=== PATIENT | female | born 1980 | race American Indian/Alaskan Native ===

== ENCOUNTER 2017-04-05 15:00 | Emergency (ER) | payer BC ==
[2017-04-05 15:08] VITALS: BP 184/126
[2017-04-05] MEDS ORDERED: CATAPRES PO ONE (16:09)
[2017-04-05] MEDS ORDERED: CATAPRES ONE (16:35)
[2017-04-05 16:38] LABS: Basophils % (Auto) 0.6 % (0.0-1.8); Eosinophils % (Auto) 2.5 % (0.0-4.3); Hematocrit 43.5 % (30.3-42.9); Hemoglobin 14.3 gm/dl (10.1-14.3); Mean Corpuscular HGB Conc 33 % (30-34); Mean Corpuscular Hemoglobin 30 pg (28-32); Mean Corpuscular Volume 92 fl (79-97); Platelet Count 194 K/mm3 (140-440); Red Blood Count 4.72 M/mm3 (3.65-5.03); Red Cell Distribution Width 13.2 % (13.2-15.2)
--- NOTE | 2017-04-05 16:52 | Emergency Department Report ---
Entered by DENISE TATE, acting as scribe for HECTOR SCHULTE PA. Chief Complaint: Dizziness Stated Complaint: DIZZINESS Time Seen by Provider: 04/05/17 15:55 - HPI History of Present Illness: 36 y/o female with PMHx of HTN, presents to the ED c/o dizziness beginning 4 days ago. Associated symptoms of seeing specks in eyesight (blurry vision), "pounding" headache, SOB, chest tightness, and non-productive cough. 9/10 severity. Patient is non-compliant with HTN medication. No other complaints. - ROS Review of Systems: RESP: positive for non-productive cough and SOB, CARDIAC: positive for chest tightness NEURO: positive for "specks in eyesight" described as blurred vision, "pounding " headache, dizziness described as lightheadedness All other systems reviewed and negative. - Exam Vital Signs: Vital Signs 04/05/17 15:05 Temperature 98.3 F Pulse Rate 93 H Respiratory 20 Rate Blood Pressure 184/126 O2 Sat by Pulse 100 Oximetry Physical Exam: Constitutional: Non toxic appearing, NAD. Cardiovascular: Normal rate and rhythm with normal S1/S2 sounds. Respiratory: No respiratory distress. Lung sounds clear to auscultation bilaterally. No wheezing. Patient is actively coughing during the exam. MSE screening note: Focused history and physical exam performed. Due to findings the following was ordered: ED Medical Decision Making - Lab Data Result diagrams: 04/05/17 16:25 - Medical Decision Making alert and oriented x3. Labs ordered, patient to be seen by ED physician No acute distress, patient is stable. ED Disposition for MSE Condition: Stable This documentation as recorded by the scribe,DENISE TATE,accurately reflects the service I personally performed and the decisions made by ERIS steele OYINLOLA A, PA.
[2017-04-05 16:59] LABS: Alanine Aminotransferase 9 units/L (7-56); Albumin 4.5 g/dL (3.9-5); Albumin/Globulin Ratio 1.4 %; Alkaline Phosphatase 76 units/L (35-129); Anion Gap 16 mmol/L; BUN/Creatinine Ratio 8.75; Blood Urea Nitrogen 7 mg/dL (7-17); Calcium 8.6 mg/dL (8.4-10.2); Carbon Dioxide 23 mmol/L (22-30); Chloride 98.9 mmol/L (98-107); Glucose 82 mg/dL (65-100); Potassium 3.2 mmol/L (3.6-5.0); Sodium 135 mmol/L (137-145); Total Protein 7.8 g/dL (6.3-8.2)
[2017-04-05 17:44] LABS: Bilirubin,Urine NEG (Negative); Blood,Urine NEG (Negative); Ketones,Urine TR mg/dL (Negative); Leukocyte Esterase,Urine NEG (Negative); Mucus,Urine 1+ /HPF; Nitrite,Urine NEG (Negative); Protein,Urine <15 mg/dL mg/dL (Negative)
--- NOTE | 2017-04-06 09:15 | XRay Report ---
ROUTINE CHEST, TWO VIEWS: History: Cough. PA and lateral views demonstrate the heart and mediastinal contour to be of normal size and shape. The lungs are clear and fully expanded and the soft tissues and bony structures are normal. IMPRESSION: Normal study.
== END 2017-04-06 12:00 | disposition left against medical advice (07) ==
LOC: ED 15:00
DX: R42 Dizziness and giddiness (principal); Z53.21 Procedure and treatment not carried out due to patient leaving prior to being seen by health care provider
CPT/HCPCS: 36415; 71020; 80053; 81001; 84703; 85025; 93005; 93010

== ENCOUNTER 2019-06-25 09:07 | Emergency (ER) | payer BC, OTHER ==
--- NOTE | 2019-06-25 10:33 | Emergency Department Report ---
ED General Adult HPI - General Chief complaint: High BP Stated complaint: FEVER/SORE THROAT/COUGH Time Seen by Provider: 06/25/19 10:32 Source: patient Mode of arrival: Ambulatory Limitations: No Limitations - History of Present Illness Severity scale (0 -10): 9 - Related Data Previous Rx's Medication Instructions Recorded Last Taken Type amLODIPine [Norvasc] 10 mg PO DAILY 30 Days #30 tab 06/25/19 Unknown Rx Allergies Allergy/AdvReac Type Severity Reaction Status Date / Time acetaminophen Allergy Unknown Verified 04/05/17 15:05 [From Lorcet (hydrocodone)] hydrocodone bitartrate Allergy Unknown Verified 04/05/17 15:05 [From Lorcet (hydrocodone)] ED Review of Systems ROS: Stated complaint: FEVER/SORE THROAT/COUGH Other details as noted in HPI ED Past Medical Hx - Past Medical History Hx Hypertension: Yes - Surgical History Past Surgical History?: No - Social History Smoking Status: Never Smoker Substance Use Type: Alcohol - Medications Home Medications: Home Medications Medication Instructions Recorded Confirmed Last Taken Type amLODIPine [Norvasc] 10 mg PO DAILY 30 Days #30 tab 06/25/19 Unknown Rx ED Physical Exam - General Limitations: No Limitations ED Course Vital Signs 06/25/19 06/25/19 06/25/19 09:13 09:28 09:31 Temperature 98.1 F Pulse Rate 109 H Respiratory 16 Rate Blood Pressure Blood Pressure 187/125 [Left] O2 Sat by Pulse 100 100 100 Oximetry 06/25/19 06/25/19 06/25/19 09:46 09:51 10:00 Temperature 98.2 F Pulse Rate 90 96 H 80 Respiratory 20 20 17 Rate Blood Pressure 179/115 159/107 Blood Pressure 179/115 [Left] O2 Sat by Pulse 100 100 97 Oximetry 06/25/19 06/25/19 06/25/19 10:15 10:30 10:45 Temperature Pulse Rate 87 75 Respiratory 13 18 Rate Blood Pressure 166/112 171/108 159/107 Blood Pressure [Left] O2 Sat by Pulse 100 100 100 Oximetry 06/25/19 06/25/19 06/25/19 10:53 11:00 11:15 Temperature Pulse Rate 83 78 75 Respiratory 23 19 Rate Blood Pressure 174/114 175/115 175/115 Blood Pressure [Left] O2 Sat by Pulse 100 100 Oximetry 06/25/19 06/25/19 06/25/19 11:27 11:31 11:45 Temperature Pulse Rate 77 67 Respiratory 17 15 Rate Blood Pressure 182/117 182/117 Blood Pressure 182/117 [Left] O2 Sat by Pulse 100 98 Oximetry 06/25/19 06/25/19 06/25/19 12:00 12:15 12:30 Temperature Pulse Rate 76 70 69 Respiratory 17 14 11 L Rate Blood Pressure 167/105 182/117 138/92 Blood Pressure [Left] O2 Sat by Pulse 99 100 97 Oximetry 06/25/19 06/25/19 06/25/19 12:45 13:00 13:07 Temperature Pulse Rate 66 62 68 Respiratory 18 16 Rate Blood Pressure 138/92 128/87 138/92 Blood Pressure [Left] O2 Sat by Pulse 100 99 Oximetry 06/25/19 06/25/19 06/25/19 13:15 13:30 13:45 Temperature Pulse Rate 64 67 64 Respiratory 16 16 16 Rate Blood Pressure 128/87 133/87 133/87 Blood Pressure [Left] O2 Sat by Pulse 100 99 100 Oximetry 06/25/19 06/25/19 06/25/19 14:00 14:23 14:30 Temperature Pulse Rate 65 73 67 Respiratory 16 14 17 Rate Blood Pressure 142/95 142/95 144/95 Blood Pressure [Left] O2 Sat by Pulse 98 100 100 Oximetry 06/25/19 14:43 Temperature Pulse Rate 68 Respiratory 14 Rate Blood Pressure Blood Pressure 144/95 [Left] O2 Sat by Pulse 100 Oximetry ED Medical Decision Making - Lab Data Result diagrams: 06/25/19 10:38 06/25/19 10:38 Critical care attestation.: If time is entered above; I have spent that time in minutes in the direct care of this critically ill patient, excluding procedure time. ED Disposition Clinical Impression: Acute viral pharyngitis Hypertension Qualifiers: Hypertension type: essential hypertension Qualified Code(s): I10 - Essential (primary) hypertension Disposition: - TO HOME OR SELFCARE Is pt being admited?: No Does the pt Need Aspirin: No Condition: Stable Instructions: Hypertension (ED), Pharyngitis (ED) Prescriptions: amLODIPine [Norvasc] 10 mg PO DAILY 30 Days #30 tab Referrals: PRIMARY CARE, [Primary Care Provider] - 3-5 Days
[2019-06-25] MEDS ORDERED: CATAPRES PO ONE (10:34)
[2019-06-25 11:06] LABS: Basophils % (Auto) 0.5 % (0.0-1.8); Eosinophils # (Auto) 0.2 K/mm3 (0.0-0.4); Eosinophils % (Auto) 2.2 % (0.0-4.3); Hematocrit 34.9 % (30.3-42.9); Hemoglobin 11.6 gm/dl (10.1-14.3); Lymphocytes # (Auto) 1.6 K/mm3 (1.2-5.4); Lymphocytes % (Auto) 22.8 % (13.4-35.0); Mean Corpuscular HGB Conc 33 % (30-34); Mean Corpuscular Volume 87 fl (79-97); Monocytes # (Auto) 0.3 K/mm3 (0.0-0.8); Platelet Count 204 K/mm3 (140-440); Red Blood Count 4.01 M/mm3 (3.65-5.03); Red Cell Distribution Width 14.7 % (13.2-15.2)
--- NOTE | 2019-06-25 11:11 | XRay Report ---
CHEST 1 VIEW INDICATION / CLINICAL INFORMATION: high bp, headache. COMPARISON: 04/05/2017 FINDINGS: SUPPORT DEVICES: None. HEART / MEDIASTINUM: No significant abnormality. LUNGS / PLEURA: No significant pulmonary or pleural abnormality. No pneumothorax. ADDITIONAL FINDINGS: No significant additional findings. IMPRESSION: 1. No significant change Signer Name: Clif Gtz MD Signed: 06/25/2019 11:07 AM Workstation Name: [id number]
[2019-06-25 11:26] LABS: Alanine Aminotransferase 10 units/L (7-56); BUN/Creatinine Ratio 11; Blood Urea Nitrogen 10 mg/dL (7-17); Calcium 8.9 mg/dL (8.4-10.2); Hemolysis Index 2
[2019-06-25] MEDS ORDERED: REGLAN IV ONE (11:42)
[2019-06-25] MEDS ORDERED: BENADRYL IV ONE (11:42)
[2019-06-25] MEDS ORDERED: DECADRON IV ONE (11:43)
[2019-06-25] MEDS ORDERED: APRESOLINE IV ONE (11:51)
[2019-06-25 14:42] VITALS: BP 144/95
--- NOTE | 2019-06-25 14:53 | Cat Scan Report ---
CT HEAD WITHOUT CONTRAST INDICATION : Severe headache. History of hypertension. TECHNIQUE: Axial, coronal and sagittal CT imaging was performed from the skull apex through the skul l base without contrast. All CT scans at this location are performed using CT dose reduction for ALA RA by means of automated exposure control. COMPARISON: None available. FINDINGS: Streak artifact from an earring limits portions of this exam. PARENCHYMA: No mass, midline shift, hemorrhage, extraaxial collection or acute territorial infarctio n. VENTRICLES: Symmetric and normal in size. SOFT TISSUES: Soft tissues including the orbits appear normal. BONES: No acute osseous abnormality. SINUSES: There is moderate opacification of the ethmoid air cells. The remaining visualized sinuses a nd mastoid air cells are clear. ADDITIONAL FINDINGS: None. IMPRESSION: 1. No acute intracranial abnormality. 2. Ethmoid sinusitis. Signer Name: Soren Pradhan MD Signed: 06/25/2019 2:48 PM Workstation Name: [id number]
== END 2019-06-25 15:14 | disposition home or self-care (01) ==
LOC: ED 09:07
DX: J02.8 Acute pharyngitis due to other specified organisms (principal); I10 Essential (primary) hypertension; Z88.6 Allergy status to analgesic agent; Z88.5 Allergy status to narcotic agent
CPT/HCPCS: 36415; 70450; 71045; 80053; 83880; 84484; 85025; 93005; 93010; 96374; 96375; 99285; J0360; J1100; J1200; J2765